=== PATIENT | female | born 1930 | race Asian ===

== ENCOUNTER 2016-11-20 14:42 | Emergency (ER) | payer SELFPAY ==
[~2016-11-20] VITALS: Ht 147.3 cm; Wt 61.0 kg
[2016-11-20 14:46] VITALS: Ht 147.3 cm; Wt 61.0 kg
[2016-11-20] MEDS ORDERED: DOXY100T20 PO (15:43)
--- NOTE | 2016-11-20 17:05 | ERD ---
ER Documentation Chief Complaint Date/Time DATE: 11/20/16 TIME: 16:58 Chief Complaint wound check to the left knee; no fever or chills HPI This is an 86-year-old female brought into the ER by daughter for wound check to left knee. Patient [place] left total knee replacement [place] in the [facility]. Since then patient has had blister formation near incision that has developed into draining lesions. Daughter states that patient recently went to an outside hospital and had x-rays and ultrasounds done to left lower extremity which were "all negative" according to daughter. No fevers or chills. Patient denies pain. Patient has small amount of serosanguineous discharge from blisters formed at incision site to left knee. ROS All systems reviewed and are negative except as per history of present illness. Medications Home Meds Active Scripts Doxycycline Hyclate* (Doxycycline Hyclate*) 100 Mg Tablet., 100 MG PO BID for 10 Days, TAB Prov:PARESH VALLEJO NP 11/20/16 Allergies Allergies: Coded Allergies: No Known Allergy (Unverified , 11/20/16) PMhx/Soc History of Surgery: Yes (HYSTERECTOMY , LT KNEE REPLACEMENT ) Anesthesia Reaction: No Hx Neurological Disorder: No Hx Respiratory Disorders: No Hx Cardiac Disorders: Yes (HTN ) Hx Psychiatric Problems: No Hx Miscellaneous Medical Probl: No Hx Alcohol Use: No Hx Substance Use: No Hx Tobacco Use: No Smoking Status: Never smoker Physical Exam Vitals Vital Signs Date Time Temp Pulse Resp B/P Pulse Ox O2 Delivery O2 Flow Rate FiO2 11/20/16 14:46 98.1 98 18 128/83 97 Physical Exam Const: No acute distress, alert Head: Atraumatic Eyes: Normal Conjunctiva ENT: Normal External Ears, Nose and Mouth. Neck: Full range of motion..~ No meningismus. Resp: Clear to auscultation bilaterally Cardio: Regular rate and rhythm, no murmurs Abd: Soft, non tender, non distended. Normal bowel sounds Skin: multiple circular generalized erythematous lesions with brown edges to anterior left knee. No surrounding erythema or warmth. Mild serosanguineous drainage from 2 of the larger lesions. Back: No midline or flank tenderness Ext: No edema. Limited flexion to left knee. Neur: Awake and alert Psych: Normal Mood and Affect Procedures/MDM MDM: 86-year-old female brought into the ER by daughter for wound check of left knee. Patient has multiple blister type lesions to anterior aspect of left knee near postsurgical incision for left knee replacement. Patient has had drainage for the past 6 months. No purulent drainage. No surrounding erythema or warmth to lesions. No fevers or chills. Patient denies pain. Patient has been on Bactrim for the past 2 weeks as previously prescribed by from outside facility. Consulted Dr. Quiroz who also examined patient and instructed me to culture drainage from the wound and to discharge patient with Doxycycline 100 mg BID x 10 days. Wound culture sent. Patient remains neurovascularly intact. No loss of sensation. Patient is appropriate for outpatient management and will be given prescription for doxycycline 100 mg twice daily 10 days. Instructed patient to follow-up with primary care provider or orthopedic physician for follow-up. Resources provided. Return to ED for any high fever, chest pain, difficulty breathing, shortness breath, wheezing, vomiting, diarrhea, abdominal pain or any new or worsening symptoms. Patient verbalizes understanding. All questions answered at discharge. Departure Diagnosis: Primary Impression: Seroma Condition: Stable Patient Instructions: Seroma, Postsurgical Referrals: [facility] YOU HAVE RECEIVED A MEDICAL SCREENING EXAM AND THE RESULTS INDICATE THAT YOU DO NOT HAVE A CONDITION THAT REQUIRES URGENT TREATMENT IN THE EMERGENCY DEPARTMENT. FURTHER EVALUATION AND TREATMENT OF YOUR CONDITION CAN WAIT UNTIL YOU ARE SEEN IN YOUR DOCTORS OFFICE WITHIN THE NEXT 1-2 DAYS. IT IS YOUR RESPONSIBILITY TO MAKE AN APPOINTMENT FOR FOLOW-UP CARE. IF YOU HAVE A PRIMARY DOCTOR --you should call your primary doctor and schedule an appointment IF YOU DO NOT HAVE A PRIMARY DOCTOR YOU CAN CALL OUR PHYSICIAN REFERRAL HOTLINE AT IF YOU CAN NOT AFFORD TO SEE A PHYSICIAN YOU CAN CHOSE FROM THE FOLLOWING [facility] [address] [facility] [address] [facility] [address] [facility] [address] [facility] [address] [facility] [address] [facility]. [facility] YOU HAVE RECEIVED A MEDICAL SCREENING EXAM AND THE RESULTS INDICATE THAT YOU DO NOT HAVE A CONDITION THAT REQUIRES URGENT TREATMENT IN THE EMERGENCY DEPARTMENT. FURTHER EVALUATION AND TREATMENT OF YOUR CONDITION CAN WAIT UNTIL YOU ARE SEEN IN YOUR DOCTORS OFFICE WITHIN THE NEXT 1-2 DAYS. IT IS YOUR RESPONSIBILITY TO MAKE AN APPOINTMENT FOR FOLOW-UP CARE. IF YOU HAVE A PRIMARY DOCTOR --you should call your primary doctor and schedule and appointment IF YOU DO NOT HAVE A PRIMARY DOCTOR YOU CAN CALL OUR PHYSICIAN REFERRAL HOTLINE AT . IF YOU CAN NOT AFFORD TO SEE A PHYSICIAN YOU CAN CHOSE FROM THE FOLLOWING [facility] INSTITUTIONS: [facility] [address] [place] [address] [facility] [address] [place] [address] [facility] [address] [place] [address] [facility] Urgent Care 7 a.m.- 11 p.m. Every Day of the Week NO APPOINTMENT OR AUTHORIZATION NEEDED Additional Instructions: Request to Evaluate for Specialty Care (Use this form only for uninsured patients) Referring Provider:JOB QUIROZ MD Patient Date of :1930 Specialty and Clinical reason(s) for request: Post op Seroma to left knee, after left knee replacement. surgery performed in the [facility] Patients Medications: Patients Pertinent Tests: Hospital Contact: [address] [place] [address] List of [facility] Facilities with Urgent Care Clinics [address] [address] 8:00am-12:00am (Midnight)(7 days a week) [facility] [address], [place] [address] 7:30am-11:00pm (7 days a week) Martín Gibson [facility] [address] [place], [place] [address] 7:30am-12:00am (Midnight) 7:30am-8:00pm (Tuesday,Tuesday & Holidays) Declan Huff [facility] [address] [place], [place] [address] 8:00am-11:00pm (7 days a week) Lc James [facility] [address] [place], [place] [address] 8:00am-4:30pm (Tuesday-Tuesday) 8:30am-5:00pm (Tuesday) [facility] [address] [place], [place] [address] 8:00am-7:30pm (Tuesday-Tuesday) 8:00am-4:30pm (Tuesday) Clinical Services are not guaranteed as a result of this request. They are rendered based on medical necessity and are at the sole discretion of [facility] Department of Health Service's staff. The uninsured patient should bring the following ID documents: 1-Current [place] [employer]'s License or government issued ID (such as [facility] Consular ID or passport) 2-Social Security Card (if they have) 3-Proof of address 4-Proof of income PARESH VALLEJO NP Nov 20, 2016 17:05
== END 2016-11-20 15:52 | disposition home or self-care (01) ==
LOC: FTE 14:42
DX: M96.842 Postprocedural seroma of a musculoskeletal structure following a musculoskeletal system procedure (principal); I10 Essential (primary) hypertension; Z96.652 Presence of left artificial knee joint
CPT/HCPCS: 87070; 99283